=== PATIENT | male | born 2005 | race Caucasian/White ===

== ENCOUNTER 2023-09-14 20:46 | Emergency (ER) | payer BC ==
[2023-09-14] MEDS ORDERED: Famotidine 20 MG/2 ML SDV IVPUSH ONE (21:12)
[2023-09-14] MEDS ORDERED: methylPREDNISolone Sodium Succinate 125 MG/2 ML SDV IVPUSH ONE (21:12)
== END 2023-09-14 22:25 | disposition home or self-care (01) ==
LOC: JD.ED 20:46
DX: T78.40XA Allergy, unspecified, initial encounter (principal)
CPT/HCPCS: 96374; 96375; 99283; J2930; J3490; 99282

== ENCOUNTER 2025-01-15 22:49 | Emergency (ER) | payer BC ==
[2025-01-16] MEDS: Dexamethasone 6 MG TABLET PO ONE (01:32)
[2025-01-16] MEDS: Famotidine 20 MG Tab PO ONE (01:32)
[2025-01-16] MEDS: Loratadine 10 MG Tab PO ONE (01:32)
== END 2025-01-16 | disposition home or self-care (01) ==
LOC: JD.ED 22:49
DX: L50.0 Allergic urticaria (principal); Z79.899 Other long term (current) drug therapy
CPT/HCPCS: 99283; 99284